=== PATIENT | female | born 1955 | race Caucasian/White ===

== ENCOUNTER 2019-07-09 08:46 | Outpatient (CLI) | payer OTHER, SELFPAY ==
[2019-07-09 08:58] LABS: Basophils Absolute Auto 0.03 K/mm3 (0.00-0.10); Basophils Percent Auto 0.4 % (0.0-1.0); Eosinophils Absolute Auto 0.15 K/mm3 (0.02-0.50); Eosinophils Percent Auto 1.8 % (1.0-6.0); Hematocrit 43.9 % (35.0-49.0); Hemoglobin 14.8 g/dL (12.0-15.0); Immature Granulocyte Absolute 0.01 K/mm3 (0.00-0.00); Immature Granulocyte Percent A 0.1 % (0.0-0.0); Lymphocytes Absolute Auto 2.71 K/mm3 (1.10-4.50); Lymphocytes Percent Auto 31.8 % (18.0-42.0); Mean Corpuscular HGB Conc 33.7 g/dL (32.0-36.0); Mean Corpuscular Hemoglobin 29.9 pg (27.0-31.0); Mean Corpuscular Volume 88.7 fL (78.0-102.0); Mean Platelet Volume 9.3 fl (9.2-11.8); Monocytes Absolute Auto 0.55 K/mm3 (0.10-0.90); Monocytes Percent Auto 6.5 % (2.0-11.0); Neutrophils Absolute Auto 5.1 K/mm3 (1.7-7.2); Neutrophils Percent Auto 59.4 % (50.0-70.0); Platelet Count Result 304 K/mm3 (150-420); Red Blood Count 4.95 M/mm3 (4.20-5.40); Red Cell Distribution Width 12.4 % (11.6-14.4); White Blood Count 8.5 K/mm3 (4.8-10.8)
[2019-07-09 09:07] LABS: Creatinine Urine 156.09 mg/dL (40-278); MALB Creatinine Ratio 5.1 mg/g (0-30)
[2019-07-09 09:09] LABS: Hemoglobin A1C 7.7 % (<5.7)
[2019-07-09 09:43] LABS: Alanine Aminotransferase 45 U/L (14-59); Albumin Level 4.2 g/dL (3.4-5.0); Alkaline Phosphatase 129 U/L (46-116); Anion Gap 13.2 mmol/L (7-16); Aspartate Amino Transferase 23 U/L (15-37); Bilirubin,Total 0.4 mg/dL (0.00-1.00); Blood Urea Nitrogen 17 mg/dL (7-18); Calcium 9.6 mg/dL (8.5-10.1); Carbon Dioxide 34 mmol/L (21-32); Chloride 102 mmol/L (98-108); Cholesterol 176 mg/dL (0-200); Estimated Glomerular Filt Rate > 60; Glucose 139 mg/dL (70-99); HDL Direct 52 mg/dL (40-60); LDL Cholesterol Calculated 79 mg/dL (<130); Osmolality Calculated 303 mOsm/kg (285-295); Potassium 4.2 mmol/L (3.5-5.1); Sodium 145 mmol/L (136-145); Total Protein 7.3 g/dL (6.4-8.2); Triglycerides 226 mg/dL (0-150)
== END 2019-07-09 08:47 | disposition home or self-care (01) ==
LOC: CHSLAB 08:49
PROVIDERS: PCP Internal Medicine; Visit Provider Internal Medicine
DX: E78.5 Hyperlipidemia, unspecified (principal); E11.9 Type 2 diabetes mellitus without complications
CPT/HCPCS: 36415; 80053; 80061; 82043; 83036; 85025

== ENCOUNTER 2020-02-05 09:56 | Outpatient (CLI) | payer OTHER, SELFPAY ==
[2020-02-05 10:17] LABS: Hemoglobin A1C 8.4 % (<5.7)
[2020-02-05 10:50] LABS: Alanine Aminotransferase 31 U/L (14-59); Alkaline Phosphatase 130 U/L (46-116); Anion Gap 10 mmol/L (8-16); Aspartate Amino Transferase 22 U/L (15-37); Bilirubin,Total 0.5 mg/dL (0.00-1.00); Blood Urea Nitrogen 18 mg/dL (7-18); Calcium 9.3 mg/dL (8.5-10.1); Carbon Dioxide 31 mmol/L (21-32); Chloride 102 mmol/L (98-108); Estimated Glomerular Filt Rate > 60; Glucose 177 mg/dL (70-99); Osmolality Calculated 301 mOsm/kg (285-295); Potassium 4.3 mmol/L (3.5-5.1); Sodium 143 mmol/L (136-145); Total Protein 6.8 g/dL (6.4-8.2)
== END 2020-02-05 09:57 | disposition home or self-care (01) ==
LOC: CHSLAB 09:58
PROVIDERS: PCP Internal Medicine; Visit Provider Internal Medicine
DX: E11.9 Type 2 diabetes mellitus without complications (principal); I10 Essential (primary) hypertension
CPT/HCPCS: 36415; 80053; 83036

== ENCOUNTER 2020-06-06 08:36 | Outpatient (CLI) | payer OTHER, SELFPAY ==
[2020-06-06 09:23] LABS: Hemoglobin A1C 8.6 % (<5.7)
[2020-06-06 09:42] LABS: Alanine Aminotransferase 86 U/L (14-59); Alkaline Phosphatase 162 U/L (46-116); Anion Gap 8 mmol/L (8-16); Aspartate Amino Transferase 39 U/L (15-37); Bilirubin,Total 0.4 mg/dL (0.00-1.00); Blood Urea Nitrogen 12 mg/dL (7-18); Calcium 9.5 mg/dL (8.5-10.1); Carbon Dioxide 32 mmol/L (21-32); Chloride 102 mmol/L (98-108); Cholesterol 173 mg/dL (0-200); Estimated Glomerular Filt Rate > 60; Glucose 192 mg/dL (70-99); HDL Direct 40 mg/dL (40-60); LDL Cholesterol Calculated 84 mg/dL (<130); Osmolality Calculated 298 mOsm/kg (285-295); Potassium 4.5 mmol/L (3.5-5.1); Sodium 142 mmol/L (136-145); Total Protein 7.1 g/dL (6.4-8.2); Triglycerides 245 mg/dL (0-150)
== END 2020-06-06 08:37 | disposition home or self-care (01) ==
LOC: CHSLAB 08:39
PROVIDERS: PCP Internal Medicine; Visit Provider Internal Medicine
DX: E11.9 Type 2 diabetes mellitus without complications (principal); I10 Essential (primary) hypertension
CPT/HCPCS: 36415; 80053; 80061; 83036; 84443

== ENCOUNTER 2020-06-17 08:26 | Outpatient (CLI) | payer OTHER, SELFPAY ==
[2020-06-17 08:36] LABS: Add Urine Microscopic? NO; Appearance Urine Clear (Clear); Bilirubin Urine Negative (Negative); Blood Urine Negative (Negative); Color Urine Yellow (Yellow); Glucose Urine UA Negative (Negative); Ketones Urine Negative (Negative); Leukocyte Esterase Ur Negative LEU/UL (Negative); Nitrate Urine Negative (Negative); Protein Urine Negative (Negative); Urobilinogen Urine 0.2 mg/dL (0.2-1.0)
== END 2020-06-17 08:27 | disposition home or self-care (01) ==
LOC: CHSLAB 08:27
PROVIDERS: PCP Internal Medicine; Visit Provider Internal Medicine
DX: N39.0 Urinary tract infection, site not specified (principal)
CPT/HCPCS: 81003

== ENCOUNTER 2020-09-11 08:42 | Outpatient (CLI) | payer OTHER, SELFPAY ==
[2020-09-11 08:52] LABS: Basophils Absolute Auto 0.04 K/mm3 (0.00-0.10); Basophils Percent Auto 0.5 % (0.0-1.0); Eosinophils Absolute Auto 0.17 K/mm3 (0.02-0.50); Eosinophils Percent Auto 2.3 % (1.0-6.0); Hematocrit 41.9 % (35.0-49.0); Immature Granulocyte Absolute 0.01 K/mm3 (0.00-0.00); Immature Granulocyte Percent A 0.1 % (0.0-0.0); Lymphocytes Absolute Auto 2.73 K/mm3 (1.10-4.50); Lymphocytes Percent Auto 36.3 % (18.0-42.0); Mean Corpuscular HGB Conc 33.4 g/dL (32.0-36.0); Mean Corpuscular Hemoglobin 29.3 pg (27.0-31.0); Mean Corpuscular Volume 87.7 fL (78.0-102.0); Mean Platelet Volume 8.7 fl (9.2-11.8); Monocytes Absolute Auto 0.45 K/mm3 (0.10-0.90); Neutrophils Absolute Auto 4.1 K/mm3 (1.7-7.2); Neutrophils Percent Auto 54.8 % (50.0-70.0); Platelet Count Result 298 K/mm3 (150-420); Red Blood Count 4.78 M/mm3 (4.20-5.40); Red Cell Distribution Width 12.9 % (11.6-14.4); White Blood Count 7.5 K/mm3 (4.8-10.8)
[2020-09-11 09:02] LABS: Hemoglobin A1C 6.8 % (<5.7)
[2020-09-11 10:18] LABS: Alanine Aminotransferase 38 U/L (14-59); Alkaline Phosphatase 111 U/L (46-116); Anion Gap 6 mmol/L (8-16); Aspartate Amino Transferase 27 U/L (15-37); Bilirubin,Total 0.5 mg/dL (0.00-1.00); Blood Urea Nitrogen 18 mg/dL (7-18); Calcium 9.2 mg/dL (8.5-10.1); Carbon Dioxide 33 mmol/L (21-32); Chloride 98 mmol/L (98-108); Estimated Glomerular Filt Rate > 60; Glucose 118 mg/dL (70-99); Osmolality Calculated 286 mOsm/kg (285-295); Potassium 3.9 mmol/L (3.5-5.1); Sodium 137 mmol/L (136-145); Total Protein 7.1 g/dL (6.4-8.2)
== END 2020-09-11 08:43 | disposition home or self-care (01) ==
LOC: CHSLAB 08:44
PROVIDERS: PCP Internal Medicine; Visit Provider Internal Medicine
DX: E11.9 Type 2 diabetes mellitus without complications (principal)
CPT/HCPCS: 36415; 80053; 83036; 85025

== ENCOUNTER 2020-11-03 10:31 | Outpatient (CLI) | payer OTHER, SELFPAY ==
--- NOTE | ~2020-11-03 | MM_ITS ---
EXAMINATION: MM screening [facility] BI [facility] HISTORY: Screening TECHNIQUE: Craniocaudal and mediolateral oblique 3-D tomosynthesis images were obtained and synthetic 2-D images were generated. CAD analysis was submitted and interpreted. COMPARISON: Comparison to multiple prior studies sequentially, with oldest reviewed study dated 05/2011. BREAST PARENCHYMAL COMPOSITION: There are scattered areas of fibroglandular density. FINDINGS: There is no evidence of suspicious mass, calcification, or architectural distortion to sugg est malignancy in either breast. There has been no suspicious interval change. IMPRESSION: 1. No mammographic evidence of malignancy. 2. Recommend routine screening mammography in one year. BI-RADS Category 1: Negative Reviewed, dictated and finalized at location A.
== END 2020-11-03 10:32 | disposition home or self-care (01) ==
LOC: CHSIMG 10:32
PROVIDERS: PCP Internal Medicine; Visit Provider Internal Medicine
DX: Z12.31 Encounter for screening mammogram for malignant neoplasm of breast (principal)
CPT/HCPCS: 77063; 77067

== ENCOUNTER 2020-11-11 10:41 | Outpatient (CLI) | payer OTHER, SELFPAY ==
--- NOTE | ~2020-11-11 | XR_ITS ---
EXAMINATION: XR foot LT min 3V DATE: 11/11/2020 11:04 INDICATION: Left foot pain TECHNIQUE: Dorsoplantar, lateral, and 2 oblique views of the left foot were obtained. COMPARISON: 02/12/2016 FINDINGS: Mild cortical irregularity is noted at the medial base of the first proximal phalanx. There is moderate osteoarthritis at the first metatarsophalangeal joint. Mild osteoarthritis is noted in m ultiple interphalangeal joints as well as in the midfoot. The soft tissues are unremarkable. IMPRESSION: 1. Mild cortical irregularity at the medial base of the first proximal phalanx which could reflect no ndisplaced fracture. Recommend clinical correlation for tenderness at this site. Reviewed, dictated and finalized at location A. IMPRESSION: 1. Mild cortical irregularity at the medial base of the first proximal phalanx which could reflect nondisplaced fracture. Recommend clinical correlation for t enderness at this site.
[2020-11-11 11:01] LABS: Basophils Absolute Auto 0.03 K/mm3 (0.00-0.10); Basophils Percent Auto 0.4 % (0.0-1.0); Eosinophils Absolute Auto 0.08 K/mm3 (0.02-0.50); Eosinophils Percent Auto 1.1 % (1.0-6.0); Hematocrit 42.4 % (35.0-49.0); Immature Granulocyte Absolute 0.01 K/mm3 (0.00-0.00); Immature Granulocyte Percent A 0.1 % (0.0-0.0); Lymphocytes Absolute Auto 2.12 K/mm3 (1.10-4.50); Lymphocytes Percent Auto 28.8 % (18.0-42.0); Mean Corpuscular Hemoglobin 29.2 pg (27.0-31.0); Mean Corpuscular Volume 88.3 fL (78.0-102.0); Mean Platelet Volume 9.2 fl (9.2-11.8); Monocytes Absolute Auto 0.51 K/mm3 (0.10-0.90); Monocytes Percent Auto 6.9 % (2.0-11.0); Neutrophils Absolute Auto 4.6 K/mm3 (1.7-7.2); Neutrophils Percent Auto 62.7 % (50.0-70.0); Platelet Count Result 335 K/mm3 (150-420); White Blood Count 7.4 K/mm3 (4.8-10.8)
[2020-11-11 11:19] LABS: Prothrombin Time 11.1 Seconds (9.50-12.10)
[2020-11-11 11:20] LABS: Alanine Aminotransferase 42 U/L (14-59); Albumin Level 4.1 g/dL (3.4-5.0); Alkaline Phosphatase 107 U/L (46-116); Anion Gap 10 mmol/L (8-16); Aspartate Amino Transferase 25 U/L (15-37); Bilirubin,Total 0.4 mg/dL (0.00-1.00); Blood Urea Nitrogen 16 mg/dL (7-18); Calcium 9.5 mg/dL (8.5-10.1); Carbon Dioxide 31 mmol/L (21-32); Chloride 104 mmol/L (98-108); Estimated Glomerular Filt Rate > 60; Glucose 111 mg/dL (70-99); Osmolality Calculated 302 mOsm/kg (285-295); Potassium 4.3 mmol/L (3.5-5.1); Sodium 145 mmol/L (136-145); Total Protein 7.1 g/dL (6.4-8.2)
[2020-11-11 13:55] LABS: Ethanol < 3 mg/dL (0-6)
== END 2020-11-11 10:42 | disposition home or self-care (01) ==
PROVIDERS: PCP Internal Medicine; Visit Provider Nurse Practitioner Family
DX: R23.3 Spontaneous ecchymoses (principal); R41.82 Altered mental status, unspecified; M79.672 Pain in left foot
CPT/HCPCS: 36415; 73630; 80053; 80307; 85025; 85610; 85730

== ENCOUNTER 2020-11-19 09:11 | Outpatient (CLI) | payer OTHER, SELFPAY ==
--- NOTE | ~2020-11-19 | MR_ITS ---
EXAMINATION: MR foot LT wo con DATE: 11/19/2020 10:43 INDICATION: Left foot pain and bruising at the medial plantar aspect of the left midfoot TECHNIQUE: Magnetic resonance imaging (MRI) of the left foot was performed without intravenous contra st. W extends from the heel through the level of the head of the first metatarsal excluding portions of the toes. A marker was placed indicating the region of maximal pain. Sequences included sagittal T 1-weighted FSE, sagittal fluid sensitive FSE STIR, coronal PD-weighted FS FSE, coronal T1-weighted FS E, coronal T2-weighted FS FSE, axial PD-weighted FS FSE, and axial PD-weighted FSE. COMPARISON: Left foot radiographs dated 11/11/2020 FINDINGS: Bone alignment is normal. Hallux valgus seen on the prior radiographs is not included within the fiel d-of-view of the MR imaging. Moderate severity polyarticular osteoarthritis with subarticular cystic changes at the posterior aspect of the tibiotalar, navicular cuneiform, first-fourth tarsal metatarsa l and first metatarsophalangeal joints. No fracture, osteonecrosis or pathologic marrow replacing pro cess. There is also normal well-defined striated pattern of the deep deltoid ligament and thickening of the anterior superficial deltoid ligament and superomedial component of the spring ligament comple x without surrounding edema consistent with scarring related to chronic sprains. The ligaments at the lateral side of the ankle appear to remain normal. Visualized flexor and extensor tendons of the kojo t and ankle are normal. The plantar aponeurosis is normal. No asymmetric atrophy or abnormal signal o f the intrinsic musculature of the foot. Physiologic amount fluid in the joint spaces. No tenosynovit is, bursitis or other abnormal fluid collections. IMPRESSION: 1. 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 2. Chronic scarring related to chronic sprains of the deep and superficial deltoid ligament and super omedial component of the spring ligament complex. Reviewed, dictated and finalized at location A. IMPRESSION: 1. 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 2. Chronic scarring related to chronic sprains of the deep and superficial delt oid ligament and superomedial component of the spring ligament complex.
== END 2020-11-19 09:12 | disposition home or self-care (01) ==
LOC: CHSIMG 09:15
PROVIDERS: PCP Internal Medicine; Visit Provider Internal Medicine
DX: M79.672 Pain in left foot (principal)
CPT/HCPCS: 73718

== ENCOUNTER 2021-01-15 07:56 | Outpatient (CLI) | payer MEDICARE, SELFPAY ==
[2021-01-15 08:22] LABS: Creatinine Urine 107.05 mg/dL (40-278); MALB Creatinine Ratio 12.1 mg/g (0-30); Microalbumin Urine Random < 13.0 mg/L
[2021-01-15 08:25] LABS: Hemoglobin A1C 6.6 % (<5.7)
[2021-01-15 08:58] LABS: Alanine Aminotransferase 39 U/L (14-59); Albumin Level 3.9 g/dL (3.4-5.0); Alkaline Phosphatase 111 U/L (46-116); Anion Gap 8 mmol/L (8-16); Aspartate Amino Transferase 21 U/L (15-37); Bilirubin,Total 0.3 mg/dL (0.00-1.00); Blood Urea Nitrogen 18 mg/dL (7-18); Calcium 9.2 mg/dL (8.5-10.1); Carbon Dioxide 34 mmol/L (21-32); Chloride 104 mmol/L (98-108); Cholesterol 183 mg/dL (0-200); Estimated Glomerular Filt Rate > 60; Glucose 114 mg/dL (70-99); HDL Direct 46 mg/dL (40-60); LDL Cholesterol Calculated 95 mg/dL (<130); Osmolality Calculated 304 mOsm/kg (285-295); Potassium 4.5 mmol/L (3.5-5.1); Sodium 146 mmol/L (136-145); Total Protein 6.9 g/dL (6.4-8.2); Triglycerides 208 mg/dL (0-150)
== END 2021-01-15 07:57 | disposition home or self-care (01) ==
PROVIDERS: PCP Internal Medicine; Visit Provider Internal Medicine
DX: E11.9 Type 2 diabetes mellitus without complications (principal)
CPT/HCPCS: 36415; 80053; 80061; 82043; 83036

== ENCOUNTER 2021-11-05 08:32 | Outpatient (CLI) | payer MEDICARE, SELFPAY ==
--- NOTE | ~2021-11-05 | MM_ITS ---
EXAMINATION: MM screening [facility] HISTORY: Screening TECHNIQUE: Craniocaudal and mediolateral oblique 3-D tomosynthesis images were obtained and synthetic 2-D images were generated. CAD analysis was submitted and interpreted. COMPARISON: Comparison to multiple prior studies sequentially, with oldest reviewed study dated 10/30. BREAST PARENCHYMAL COMPOSITION: There are scattered areas of fibroglandular density. FINDINGS: There is no evidence of suspicious mass, calcification, or architectural distortion to sugg est malignancy in either breast. There has been no suspicious interval change. IMPRESSION: 1. No mammographic evidence of malignancy. 2. Recommend routine screening mammography in one year. BI-RADS Category 1: Negative Reviewed, dictated and finalized at location L.
== END 2021-11-05 08:33 | disposition home or self-care (01) ==
LOC: CHSIMG 08:33
PROVIDERS: PCP Internal Medicine; Visit Provider Internal Medicine
DX: Z12.31 Encounter for screening mammogram for malignant neoplasm of breast (principal)
CPT/HCPCS: 77063; 77067

== ENCOUNTER 2022-11-08 11:36 | Outpatient (CLI) | payer OTHER, SELFPAY ==
--- NOTE | ~2022-11-08 | MM_ITS ---
EXAMINATION: MM screening [facility] BI [facility] HISTORY: Screening mammogram TECHNIQUE: Craniocaudal and mediolateral oblique 3-D tomosynthesis images were obtained and synthetic 2-D images were generated. CAD analysis was submitted and interpreted. COMPARISON: 11/05/2021, 11/03/2020, 10/30/2012 BREAST PARENCHYMAL COMPOSITION: There are scattered areas of fibroglandular density. FINDINGS: No suspicious mass, calcification, or architectural distortion are identified in either shreyas ast to suggest malignancy. There has been no suspicious interval change. IMPRESSION: 1. No mammographic evidence of malignancy. 2. Recommend routine screening mammography in one year. BI-RADS Category 1: Negative Reviewed, dictated and finalized at location A.
== END 2022-11-08 11:37 | disposition home or self-care (01) ==
LOC: CHSIMG 11:38
PROVIDERS: PCP Internal Medicine; Visit Provider Internal Medicine
DX: Z12.31 Encounter for screening mammogram for malignant neoplasm of breast (principal)
CPT/HCPCS: 77063; 77067

== ENCOUNTER 2023-06-15 08:48 | Outpatient (CLI) | payer OTHER, SELFPAY ==
--- NOTE | ~2023-06-15 | CT_ITS ---
CT Scan of the Chest without Contrast: Clinical Indication: Lung cancer screening, personal history of nicotine dependence Technique: Contiguous sections were acquired throughout the chest without intravenous contrast. Dose reduction technique was used on this scan by utilizing automated exposure control and iterative recon struction technique. The dose-length product (DLP) was 118.16 mGy-cm. Findings: There is no evidence of any significant mediastinal, hilar or axillary lymphadenopathy. The mediastin al soft tissues appear normal. There is no evidence of pleural or pericardial effusion. The lungs are clear. No pulmonary nodules or infiltrates are noted. Images through the upper abdomen reveal no abnormalities. Impression: Lung RADS 1: Negative. 12 month follow-up screening CT advised. Reviewed, dictated and finalized at location . OR [employer] OFFICER Impression: Lung RADS 1: Negative. 12 month follow-up screening CT advised.
== END 2023-06-15 08:49 | disposition home or self-care (01) ==
LOC: CHSIMG 08:49
PROVIDERS: PCP Internal Medicine; Visit Provider Internal Medicine
DX: Z12.2 Encounter for screening for malignant neoplasm of respiratory organs (principal); Z87.891 Personal history of nicotine dependence
CPT/HCPCS: 71271

== ENCOUNTER 2023-06-20 06:48 | Day surgery (SDC) | payer OTHER, SELFPAY ==
[2023-05-30 11:50] VITALS: BMI 31.4
[2023-06-20 07:10] VITALS: BP 134/86; PULSE 80; RESP 20; TEMP 36.9; O2SAT 97
[2023-06-20 07:33] LABS: Glucose Point of Care 148 mg/dl (65-105)
[2023-06-20] MEDS: LACTATED RINGERS 1,000 ML 150 ML IV CONT (07:42)
--- NOTE | 2023-06-20 08:22 | P.PNAN_ITS ---
Anes - Initial Pre Proc Eval Procedure: Operation Date: 06/20/23 08:45 Proposed Procedures p Screening Colonoscopy - Yohan Lane DO Date/Time: 06/20/23 08:22 Surgeon: Yohan Lane DO Pre Op Diagnosis: Neoplasm Screening Patient Data Age: 68 Gender: F Height: 1.6 m Weight: 79.5 kg Last Vital Signs Temp 36.9 C 06/20/23 07:10 Pulse 80 06/20/23 07:10 Resp 20 06/20/23 07:10 BP 134/86 06/20/23 07:10 Pulse Ox 97 06/20/23 07:10 O2 Del Method Room Air 06/20/23 07:10 Allergies Allergy/AdvReac Type Severity Reaction Status Date / Time No Known Allergies Allergy Verified 06/20/23 07:35 Home Medications Medication Instructions Recorded Confirmed Type Fish Oil 1 tab-cap PO DIRECTED 06/03/23 06/20/23 History Vitamin D3 1 tab-cap PO DIRECTED 06/03/23 06/20/23 History allopurinol 100 mg tablet 100 mg PO DAILY 06/03/23 06/20/23 History glimepiride 1 mg tablet 1 mg PO BID 06/03/23 06/20/23 History ipratropium bromide 42 mcg (0.06 2 spray intranasal BID 06/03/23 06/20/23 History %) nasal spray irbesartan 75 mg tablet 75 mg PO HS 06/03/23 06/20/23 History loratadine 10 mg tablet 10 mg PO DAILY 06/03/23 06/20/23 History metformin 500 mg tablet,extended 1,000 mg PO BID 06/03/23 06/20/23 History release 24 hr omeprazole 40 mg capsule,delayed 40 mg PO DAILY 06/03/23 06/20/23 History release oxybutynin chloride 5 mg 5 mg PO DAILY 06/03/23 06/20/23 History tablet,extended release 24 hr simvastatin 40 mg tablet 40 mg PO DAILY 06/03/23 06/20/23 History vitamin E 1 tab-cap PO DIRECTED 06/03/23 06/20/23 History Laboratory Tests 06/20/23 07:28 POC Capillary Glucose 148 H mg/dl (65-105) Patient hx anesthesia problems: none Family hx anesthesia problems: none Results Review: All pre-operative results and documents have been reviewed as part of the pre- operative evaluation. [facility] Past Medical History Medical History (Updated 06/20/23 @ 08:22 by Jez Shipman MD) Diabetes HTN (hypertension) Hyperlipidemia Social History Social History Smoking status: Former smoker Smoking end date: 04/18/09 Alcohol intake: current Substance use type: does not use Anes - Eval Final PreProcedure Day of Procedure 06/20/23 08:22 Patient weight: obese Heart: regular rate and rhythm Lungs: clear to auscultation Airway: Mallampati scale class II Neurological: alert and oriented Last oral intake: >/= 8 hours ASA classification: III Anesthetic plan: proceed Anesthesia type and monitoring: general GIVS and standard monitoring Results Review: All pre-operative results and documents have been reviewed as part of the pre- operative evaluation. Informed Consent: The patient's anesthetic plan and its attendant risks and benefits were discussed with the patient/family/POA. Questions were solicited and answers provided to the satisfaction of the patient/family/POA.
--- NOTE | 2023-06-20 08:57 | PM.IMHP ---
H&P: HPI History of Present Illness Date/Time: 06/20/23 08:57 Chief Complaint: History of colon polyps Narrative: this is a 68-year-old woman who presents for colonoscopy. Her last colonoscopy was over 5 years ago and a polyp was removed at that time. She denies any hematochezia or melena. She denies any family history of colon cancer or change in bowel habits. Review of Systems Review of Systems: All systems reviewed & are unremarkable except as noted in HPI and below Constitutional: Constitutional: Denies chills, Denies fever(s), Denies headache(s) and Denies weight loss Eyes: Eyes: Denies change in vision ENT: Denies dizziness, Denies headache(s), Denies neck mass and Denies throat swelling Cardiovascular: Cardiovascular: Denies chest pain, Denies lightheadedness and Denies dyspnea Respiratory: Respiratory: Denies cough, Denies dyspnea and Denies wheezing Gastrointestinal: Gastrointestinal: Denies abdominal pain, Denies change in bowel habits, Denies nausea and Denies vomiting Genitourinary: Genitourinary: Denies hematuria and Denies dysuria Musculoskeletal: Musculoskeletal: Reports as per HPI Integumentary/Breasts: Skin/Breast: Reports as per HPI Neurologic: Denies dizziness and Denies headache(s) Allergic/Immunologic: Allergic/Immunologic: Denies throat swelling and Denies wheezing [facility] Past Medical History Medical History (Updated 06/20/23 @ 08:[address] DO) Diabetes HTN (hypertension) Hyperlipidemia Social History Social History Smoking status: Former smoker Smoking end date: 04/18/09 Alcohol intake: current Substance use type: does not use Meds Home Medications and Allergies Home Medications Medication Instructions Recorded Confirmed Type Fish Oil 1 tab-cap PO DIRECTED 06/03/23 06/20/23 History Vitamin D3 1 tab-cap PO DIRECTED 06/03/23 06/20/23 History allopurinol 100 mg tablet 100 mg PO DAILY 06/03/23 06/20/23 History glimepiride 1 mg tablet 1 mg PO BID 06/03/23 06/20/23 History ipratropium bromide 42 mcg (0.06 2 spray intranasal BID 02/16/24 03/04/24 History %) nasal spray irbesartan 75 mg tablet 75 mg PO HS 06/03/23 06/20/23 History loratadine 10 mg tablet 10 mg PO DAILY 06/03/23 06/20/23 History metformin 500 mg tablet,extended 1,000 mg PO BID 06/03/23 06/20/23 History release 24 hr omeprazole 40 mg capsule,delayed 40 mg PO DAILY 06/03/23 06/20/23 History release oxybutynin chloride 5 mg 5 mg PO DAILY 06/03/23 06/20/23 History tablet,extended release 24 hr simvastatin 40 mg tablet 40 mg PO DAILY 06/03/23 06/20/23 History vitamin E 1 tab-cap PO DIRECTED 06/03/23 06/20/23 History Allergies Allergy/AdvReac Type Severity Reaction Status Date / Time No Known Allergies Allergy Verified 06/20/23 07:35 Vital Signs Vital Signs - 24 hr 06/20/23 07:10 Temperature 36.9 C Pulse Rate 80 Respiratory Rate 20 Blood Pressure 134/86 Pulse Oximetry 97 Oxygen Delivery Room Air Exam Const: General: no acute distress and alert Orientation/consciousness: patient oriented x3 HENMT: Head: normocephalic and atraumatic Ears: hearing grossly normal bilaterally Face/Nose/Sinus: Normal nares present Mouth: Yes Normal oral and palatal mucosa present Eyes: Periorbital: periorbital findings normal Sclera: sclerae normal EOM: EOMs intact bilaterally Neck: Neck: normal visual inspection, no lymphadenopathy and trachea midline Chest: Chest palpation & inspection: normal inspection of the chest Resp: Effort & Inspection: normal respiratory effort Auscultation: clear to auscultation bilaterally Cardio: Jugular venous distension: no JVD Rate: regular rate Rhythm: regular rhythm Heart sounds: S1 normal heart sound present and S2 normal heart sound present Peripheral pulses: Peripheral pulses 2+ throughout GI: Inspection: normal to inspection GI Palp: Yes Soft to palpation, No
--- NOTE | 2023-06-20 08:58 | WPDHPUPDATE1 ---
History and Physical Update Update Date/Time: 06/20/23 08:58 History and Physical has been reviewed, including an updated exam of the patient. There are NO changes in the patient's condition. Risks, benefits, and alternatives have been discussed and questions answered. Patient agrees to proceed with procedure.
[2023-06-20 09:39] VITALS: BP 102/66; PULSE 66; RESP 16; O2SAT 97
[2023-06-20 09:49] VITALS: BP 104/60; PULSE 69; RESP 20; O2SAT 98
--- NOTE | 2023-06-20 09:57 | WPDANESPN ---
Anes - Prog Note Post-Op Date/Time: 06/20/23 09:57 Cardiovascular status: normal Respiratory status: normal Airway patency: baseline Mental status: baseline Post-Op hydration status: normal Vital Signs: Last Vital Signs Temp 36.9 C 06/20/23 07:10 Pulse 69 06/20/23 09:49 Resp 20 06/20/23 09:49 BP 104/60 06/20/23 09:49 Pulse Ox 98 06/20/23 09:49 O2 Del Method Room Air 06/20/23 09:49 Pain Score (VAS): 0/10 I/O: Intake & Output 06/19/23 06/20/23 06/20/23 23:59 07:59 15:59 Intake Total 1000 Balance 1000 06/20/23 07:28 POC Capillary Glucose 148 H Patient Feedback: Patient satisfied with anesthetic care.
[2023-06-20 09:59] VITALS: BP 120/60; PULSE 76; RESP 20; O2SAT 99
== END 2023-06-20 10:10 | disposition home or self-care (01) ==
PROVIDERS: PCP Internal Medicine; Visit Provider Surgery
PROC: 0DJD8ZZ Inspection of Lower Intestinal Tract, Via Natural or Artificial Opening Endoscopic (ICD-10-PCS; CPT 45378; principal; 2023-06-20 08:45)
DX: Z86.010 Personal history of colon polyps (principal)
CPT/HCPCS: 45378

== ENCOUNTER 2024-02-20 09:55 | Outpatient (RCR) | payer OTHER, SELFPAY ==
--- NOTE | 2024-02-20 11:33 | PTOPEVAL1 ---
Assessment and note entered by Farncisco Javier Horton Evaluation Information Assessment Status Evaluation Diagnosis impaired balance, R26.89 ICD-10 Condition Codes (PT) Dizziness & Giddiness R42 Onset 02/19/23 Subjective Information Pt. reports that she has been dizzy for about 1 year. She reports that she recently went through therapy regarding her balance recently. She reports that while participating in therapy, she was sedentary between sessions, and spends a lot of her time sleeping. She states that she has a little numbness in both of her feet that his constant. She reports that she has started no new medications. She states that she has no history of depression. She is diabetic but states that she does not ever check her glucose levels. She reports that she continues to drive locally, despite her dizziness. She states that she does eat 2 meals a day, which is usually breakfast and dinner. She states that she sleeps sporadically throughout the day. She states that her goal remains to get rid of her dizziness. Reported Pain Level Pain Score 0: Self Report Assessment PT Clinical Summary Pt. is a 69 year old female who enters the clinic regarding dizziness and impaired balance. She presents with mild indication of vestibular disorder and moderate fall risk. She has hx of diabetes that she does not monitor that is also concerning. Contacted the referring practitioner to discuss differential diagnosis. At this time continued skilled PT is indicated to address balance and vestibular/oculomotor condition to help reduce fall risk. Plan of Care Interventions Gait Training,Neuro Re-education,Patient/Caregiver Educati,Therapeutic Activities,Therapeutic Exercise PT Services Indicated Yes Treatment Frequency and 1x/week x 6 visits Duration These treatments will address the objective and functional deficits as defined above. The patient will be advanced safely and appropriately in order for the patient to progress towards his/her prior level of function. Additional exercises will be introduced and as well as a comprehensive home exercise program upon discharge, if needed, ?to ensure carryover of functional gains achieved in the clinic. This treatment plan has been reviewed and agreement upon by the patient.
--- NOTE | 2024-02-20 11:34 | OPREHPOC ---
Outpatient Therapy Plan of Care This is a Multidisciplinary Plan of Care that may contain components documented by all disciplines (PT, OT, and ST.) PT Problem 1 PT Problem #1 Knowledge Deficit PT Goal 1 Goal / Goal Update Independent with a HEP addressing visual tracking and vestibular condition. Target Visit 2 PT Problem 2 PT Problem #2 Impaired Vestibular Syste PT Goal 1 Goal / Goal Update Pt. will deny dizziness with visual tracking activities and balance activities. Target Visit 6 PT Problem 3 PT Problem #3 Impaired Balance PT Goal 1 Goal / Goal Update Pt. will score 25 or greater on the Tinetti. Target Visit 6
--- NOTE | 2024-03-26 11:37 | PTOPDC ---
Assessment and note entered by [facility] Evaluation Information Assessment Status Discharge Diagnosis impaired balance, R26.89 ICD-10 Condition Codes (PT) Dizziness & Giddiness R42 Onset 02/19/23 Subjective Information Pt. reports that while she still has dizziness she is doing better. She reports that she is walking in her home without her cane. She states that she is not currently dizzy and dizziness remains on/off. Reported Pain Level Pain Score 0: Self Report Assessment PT Clinical Summary Despite continued c/o dizziness, pt. demonstrates improved Tinetti score and improved safety with ambulation. Her stride length is improved without cuing and appears to deviate laterally less over short distance. She will be discharged from our care and follow up with the neurologist regarding her continued dizziness. Plan of Care PT Services Indicated No
== END 2024-03-26 11:39 | disposition home or self-care (01) ==
LOC: CHSPT 09:55
PROVIDERS: Visit Provider Nurse Practitioner Family
DX: R26.89 Other abnormalities of gait and mobility (principal); R42 Dizziness and giddiness
CPT/HCPCS: 97110; 97112; 97116; 97162; 97530

== ENCOUNTER 2024-02-24 09:23 | Outpatient (CLI) | payer OTHER, SELFPAY ==
--- NOTE | ~2024-02-24 | US_ITS ---
EXAMINATION: US carotid duplex BI DATE: 02/24/2024 09:44 INDICATION: Dizziness TECHNIQUE: Grayscale, color Doppler, and pulsed Doppler images of the cervical carotid arteries were obtained. The degree of vessel stenosis is placed in one of the following categories: normal, <50%, 5 0-69%, >=70% but less than near-occlusion, near-occlusion, or total occlusion. Note that percent sten osis relative to normal distal artery lumen diameter is indirectly measured from velocity measurement s as described by Igor, et al. Radiology 2003; [id number]. Notes: Normal: Peak systolic velocity <125 centimeters/sec and no plaque <50%. Peak systolic velocity <125 ( EDV <40; ICA/CCA PSV ratio <2.0; used these factors only a tandem lesions or low cardiac output or co ntralateral disease) 50-69 %: PSV 125-230 (EDV 40-100; ratio 2-4) >= 70% but less than near occlusion: PSV greater than 230 (EDV > 100; ratio> 4.0) Near Occlusion: PSV that is variable; markedly narrowed lumen Occlusion: Absent flow on color/spectral Doppler and no lumen on gómez scale. COMPARISON: None. FINDINGS: RIGHT: The right common carotid artery (CCA) peak systolic velocity (PSV) is 101 cm/s. The right internal ca rotid artery (ICA) PSV is 110 cm/s. The right ICA end-diastolic velocity (EDV) is 27 cm/s. The right ICA/CCA PSV ratio is 1.1. The external carotid artery (ECA) PSV is 71 cm/s. There is antegrade flow i n the right vertebral artery. LEFT: The left CCA PSV is 110 cm/s. The left ICA PSV is 69 cm/s. The left ICA EDV is 18 cm/s. The left ICA/ CCA PSV ratio is 0.6. The ECA PSV is 82 cm/s. There is antegrade flow in the left vertebral artery. IMPRESSION: 1. Less than 50% stenosis in the right internal carotid artery by sonographic criteria. 2. Less than 50% stenosis in the left internal carotid artery by sonographic criteria. Reviewed, dictated and finalized at location B. ICAL MANAGER IMPRESSION: 1. Less than 50% stenosis in the right internal carotid artery by sonographic erica garvin. 2. Less than 50% stenosis in the left internal carotid artery by sonographic alysha claros.
== END 2024-02-24 09:24 | disposition home or self-care (01) ==
LOC: CHSIMG 09:24
PROVIDERS: PCP Internal Medicine; Visit Provider Internal Medicine
DX: R42 Dizziness and giddiness (principal); I65.23 Occlusion and stenosis of bilateral carotid arteries
CPT/HCPCS: 93880

== ENCOUNTER 2024-03-10 10:31 | Outpatient (CLI) | payer OTHER, SELFPAY ==
--- NOTE | ~2024-03-10 | MR_ITS ---
EXAMINATION: MR brain/brain stem wo con DATE: 03/10/2024 11:41 INDICATION: 5 months of unsteady gait TECHNIQUE: Magnetic resonance imaging (MRI) of the brain and brainstem was performed without intraven ous contrast. Sequences included sagittal and axial T1-weighted SE, axial diffusion-weighted FS SE, a xial T2*-weighted GRE, axial T2-weighted FLAIR, and axial T2-weighted FSE. Apparent diffusion coeffic ient (ADC) maps were created. COMPARISON: Head CT dated 02/04/2017 FINDINGS: There are no areas of restricted diffusion to suggest acute infarction. No intracranial hemorrhage or abnormal intracranial mass lesion. There are a few scattered small foci of nonspecific increased T2- weighted signal intensity in the cerebral white matter, predominantly involving the deep and perivent ricular white matter which is well within normal limits for age. There are no intraparenchymal signal abnormalities seen on the other pulse sequences. The ventricles are symmetric and normal in size. Th ere are no abnormal extra-axial fluid collections. Flow voids are seen in the cerebral arteries on th e T2-weighted sequences consistent with their expected patency. Mild mucosal thickening the bilateral ethmoid sinuses. Visualized orbits and soft tissues are unremarkable. Small left mastoid effusion. IMPRESSION: 1. Normal for age brain. No acute intrarenal process. Reviewed, dictated and finalized at location A. FURNITURE CASTER
== END 2024-03-10 10:32 | disposition home or self-care (01) ==
LOC: CHSIMG 10:32
PROVIDERS: PCP Internal Medicine; Visit Provider Nurse Practitioner Family
DX: R42 Dizziness and giddiness (principal); R26.81 Unsteadiness on feet
CPT/HCPCS: 70551

== ENCOUNTER 2024-04-12 11:55 | Outpatient (CLI) | payer OTHER, SELFPAY ==
[2024-04-12 12:23] LABS: Basophils Absolute Auto 0.02 K/mm3 (0.00-0.10); Basophils Percent Auto 0.2 % (0.0-1.0); Eosinophils Absolute Auto 0.05 K/mm3 (0.02-0.50); Eosinophils Percent Auto 0.6 % (1.0-6.0); Hematocrit 42.9 % (35.0-42.0); Hemoglobin 14.9 g/dL (11.7-13.8); Immature Granulocyte Absolute 0.03 K/mm3 (0.00-0.00); Immature Granulocyte Percent A 0.4 % (0.0-0.0); Lymphocytes Absolute Auto 2.03 K/mm3 (1.10-4.50); Lymphocytes Percent Auto 23.8 % (18.0-42.0); Mean Corpuscular HGB Conc 34.7 g/dL (32-36); Mean Corpuscular Hemoglobin 30.2 pg (27.0-31.0); Mean Corpuscular Volume 86.8 fL (78.0-102.0); Monocytes Absolute Auto 0.43 K/mm3 (0.10-0.90); Neutrophils Absolute Auto 5.98 K/mm3 (1.70-7.20); Platelet Count Result 345 K/mm3 (150-420); Red Blood Count 4.94 M/mm3 (4.20-5.40); Red Cell Distribution Width 12.5 % (11.6-14.4); White Blood Count 8.5 K/mm3 (4.8-10.8)
[2024-04-12 12:42] LABS: Add Urine Microscopic? YES; Appearance Urine Clear (Clear); Bilirubin Urine Negative (Negative); Blood Urine Negative (Negative); Color Urine Light Yellow (Yellow); Glucose Urine UA Negative (Negative); Ketones Urine Negative (Negative); Leukocyte Esterase Ur Trace (Negative); Nitrate Urine Negative (Negative); Protein Urine Negative (Negative); Urobilinogen Urine 0.2 mg/dL (0.2-1.0); pH Urine 7.5 (5.0-8.0)
[2024-04-12 12:50] LABS: D Dimer 0.21 mg/L (0.19-0.50)
[2024-04-12 12:55] LABS: Hemoglobin A1C 6.3 % (<5.7)
[2024-04-12 13:04] LABS: Bacteria Urine Rare /hpf; RBC Urine 0-2 /hpf (0-2); Squamous Epithelial Cell Urine Rare /hpf (Few); WBC Urine 0-3 /hpf (0-3)
[2024-04-12 13:33] LABS: Alanine Aminotransferase 27 U/L (14-59); Albumin Level 4.6 g/dL (3.4-5.0); Alkaline Phosphatase 141 U/L (46-116); Anion Gap 12 mmol/L (4-12); Aspartate Amino Transferase 16 U/L (15-37); Bilirubin,Total 0.4 mg/dL (0.00-1.00); Blood Urea Nitrogen 13 mg/dL (7-18); Calcium 10.1 mg/dL (8.5-10.1); Carbon Dioxide 31 mmol/L (21-32); Chloride 101 mmol/L (98-108); Estimated Glomerular Filt Rate > 60; Glucose 102 mg/dL (70-99); NT Pro B Type Natriuretic Pept 24 pg/mL (0-125); Osmolality Calculated 298 mOsm/kg (285-295); Potassium 4.3 mmol/L (3.5-5.1); Sodium 144 mmol/L (136-145); Thyroid Stimulating Hormone 1.08 uIU/mL (0.36-3.74); Total Protein 7.8 g/dL (6.4-8.2)
[2024-04-12 13:41] LABS: CRP < 0.5 mg/dL (0.0-0.9)
== END 2024-04-12 11:56 | disposition home or self-care (01) ==
LOC: CHSLAB 11:58
PROVIDERS: PCP Internal Medicine; Visit Provider Internal Medicine
DX: R06.9 Unspecified abnormalities of breathing (principal); M79.89 Other specified soft tissue disorders; E11.9 Type 2 diabetes mellitus without complications
CPT/HCPCS: 36415; 80053; 81001; 83036; 83880; 84443; 85025; 85380; 86140

== ENCOUNTER 2024-12-10 12:18 | Outpatient (CLI) | payer OTHER, SELFPAY ==
--- NOTE | ~2024-12-10 | XR_ITS ---
EXAMINATION: XR ribs LT 2V w CXR 2V DATE: 12/10/2024 12:44 INDICATION: Left thoracic cage contusion TECHNIQUE: 4 images were obtained COMPARISON: None available FINDINGS: Mildly displaced left lateral eighth, ninth and 10th rib fractures. Heart is mildly enlarged. No pneumothorax. No pleural effusion. No free air the diaphragm. Small opacities in the lower lungs. IMPRESSION: 1. Mildly displaced left lateral eighth, ninth and 10th acute rib fractures. 2. Small opacities in the mid and lower lungs which represents atelectasis/scarring or infiltrates. Reviewed, dictated and finalized at location Q. IMPRESSION: 1. Mildly displaced left lateral eighth, ninth and 10th acute rib fractures. 2. Small opacities in the mid and lower lungs which represents atelectasis/sca rring or infiltrates.
--- OUTSIDE RECORDS SUMMARY | 2024-12-10 12:28 | XMS_ITS | Encounter Summary ---
Author Organization [facility] Address [address] [place] [id number] Care Team Providers Care Layer Off Name Role Phone Quentin Acevedo MD Primary Care Provider [phone] Encounter Details Date Type Department Care Team (Late st Contact Info) Description 09/23/2018 Abstract [facility] CONVERSION [address] [place] [id number] , Generic Conversion, Social History Tobacco Use Types Packs/Day Years Used Date Smoking Tobacco: Never Assessed Comments Unknown Sex and Gender Information Value Date Recorded Sex Assigned at Female 05/24/2024 12:53 PM FARM FACILITY MANAGER Legal Sex Female 11:30 PM FARM FACILITY MANAGER Gender Identity Not on file Sexual Orientation Not on file documented as of this encounter Plan of Treatment Upcoming Encounters Date Type Department Care Team (Late st Contact Info) Description 11/14/2025 1:30 PM CDT Appointment [facility] [address] [place] [address] Quentin Acevedo MD [address] [place] [address] documented as of this encounter Visit Diagnoses Not on filedocumented in this encounter Care Teams Layer Off Relationship Specialty Start Date End Date Quentin Acevedo MD [address] [place] [address] PCP - General INTERNAL MEDICINE 10/20/18 documented as of this encounter
--- OUTSIDE RECORDS SUMMARY | 2024-12-10 12:28 | XMS_ITS | Clinical Summary ---
Author Organization [facility] Address [facility] [place] [address] Care Team Providers Care Airline Pilot Name Role Phone Quentin Acevedo MD Primary Care Provider [phone] Allergies No known active allergies Medications allopurinol (ZYLOPRIM) 100 MG tablet Take 1 tablet (100 mg total) by mouth daily. Active vitamin D3 (CHOLECALCIFERO L) 25 mcg tablet Take by mouth 2 (two) times daily. Active metFORMIN (GLUCOPHAGE) 500 MG tablet Take 1 tablet (500 mg total) by mouth. Active omeprazole (PRILOSEC) 40 MG capsule Take 1 capsule (40 mg total) by mouth daily. Active simvastatin (ZOCOR) 40 MG tablet Take 1 tablet (40 mg total) by mouth nightly. Active oxybutynin (DITROPAN) 5 MG tablet Take 1 tablet (5 mg total) by mouth 3 (three) times daily. taKES EVERY OTHER DAY Active irbesartan (AVAPRO) 75 MG tablet Take 1 tablet (75 mg total) by mouth daily. Active magnesium oxide (MAG-OX) 250 MG tablet Take 1 tablet (250 mg total) by mouth daily. Active potassium chloride CR 15 MEQ Tab CR tablet Active aspirin 81 MG chewable tablet Chew 1 tablet (81 mg total) by mouth daily. Active Active Problems Problem Noted Date Diagnosed Date Balance disorder 12/27/2023 Encounters Date Type Department Care Team Description 11/28/2024 9:05 AM CDT - 11/28/2024 11:59 PM CDT Hospital Encounter [facility] [address] [facility] [address] Krystal Roche, Discharge Disposition: Home or Self Care (Routine Discharge) 11/28/2024 Orders Only [facility] [address] [place] [address] Krystal Roche, 11/28/2024 Travel 11/14/2024 1:20 PM CDT - 11/14/2024 11:59 PM CDT Hospital Encounter [facility] [address] [place] [address] Quentin Acevedo MD Discharge Disposition: Home or Self Care (Routine Discharge) 11/14/2024 Travel from Last 3 Months Family History Medical History Relation Comments Prostate Cancer Brother Relation Status Comments Brother Social History Tobacco Use Types Packs/Day Years Used Date Smoking Tobacco: Never Smokeless Tobacco: Never Tobacco Cessation:Counseling Given: Not Answered Alcohol Use Standard Drinks/Week Comments Yes 0 (1 standard drink = 0.6 oz pur e alcohol) OCCASIONALLY Comments No Sex and Gender Information Value Date Recorded Sex Assigned at Female 05/24/2024 12:53 PM BUSINESS CONTINUITY SPECIALIST Legal Sex Female 11:30 PM BUSINESS CONTINUITY SPECIALIST Gender Identity Not on file Sexual Orientation Not on file Last Filed Vital Signs Vital Sign Reading Time Taken Comments Blood Pressure 170/66 01/05/2023 11:19 PM CDT Pulse 81 01/05/2023 11:19 PM CDT Temperature 36.8 C (98.2 F) 01/05/2023 11:19 PM CDT Respiratory Rate 16 01/05/2023 11:19 PM CDT Oxygen Saturation 99% 01/05/2023 11:19 PM CDT Inhaled Oxygen Concentration - - Weight 80.9 kg (178 lb 6.4 oz) 01/05/2023 11:19 PM CDT Height 162.6 cm (5' 4) 01/05/2023 11:19 PM CDT Body Mass Index 30.62 01/05/2023 11:19 PM CDT Plan of Treatment Upcoming Encounters Date Type Department Care Team (Late st Contact Info) Description 11/14/2025 1:30 PM CDT Appointment [facility] [address] [place] [address] Quentin Acevedo MD [address] [place] [address] Health Maintenance Due Date Last Done Comments Colorectal Cancer Screening Colonoscopy (10 Years) 1955 Hepatitis C 01/10/1974 Annual Medicare Wellness Visit 01/10/2021 Zoster Vaccines (3 of 3) 10/19/2024 08/24/2024, 11/0 05/2015 Mammogram Screening 11/14/2026 11/14/2024, 11/15/2023, 10/29/2019, Additional history exists DTaP, Tdap and Td Vaccines (3 - Td or Tdap) 07/07/2033 07/08/2023, 02/08/2017 Pneumococcal Vaccine: 50+ Years Completed 01/01/2022, 01/10/2021, 02/13/2016 RSV Immunization or 60+ Years Completed 07/08/2023 Dexa Scan (General) Completed 11/15/2023 COVID-19 Vaccine Completed 07/01/2024, , 01/28/2023, Additional history exists Meningococcal B Vaccine Aged Out No l onger eligible based on patient's age to complete this topic Meningococcal Vaccine Aged Out No thang dilip eligible based on patient's age to complete this topic RSV Immunizations Under 20 Months Aged Out No longer eligible based on patient's age to complete this topic Procedures Procedure Name Priority Date/Time Associated Diagnosis Comments PROTEIN ELECTROPHORESIS URINE RANDOM Routine 11/28/2024 9:26 AM CDT Idiopathic peripheral neuropathy SED RATE, ERYTHROCYTE (ESR) Routine 11/28/2024 9:24 AM CDT Idiopathic peripheral neuropathy C-REACTIVE PROTEIN Routine 11/28/2024 9: 24 AM CDT Idiopathic peripheral neuropathy ANTINUCLEAR ANTIBODY WI RFX Routine 11/28/2024 9:24 AM CDT Idiopathic peripheral neuropathy PROTEIN, ELECTROPHORESIS Routine 11/28/2024 9:24 AM CDT Idiopathic peripheral neuropathy IMMUNOFIXATION Routine 11/28/2024 9:24 AM CDT Idiopathic peripheral neuropathy TSH W/REFLEX Routine 11/28/2024 9:24 AM CDT Idiopathic peripheral neuropathy VITAMIN B-12 Routine 11/28/2024 9:24 AM CDT Idiopathic peripheral neuropathy VITAMIN B6 Routine 11/28/2024 9:24 AM CDT Idiopathic peripheral neuropathy MG SCREENING W ALEC KACIE DIGI Routine 11/14/2024 2:09 PM CDT Visit for screening mammogram BONE DENSITY/DEXA Routine 11/15/2023 2:3 8 PM CDT Postmenopausal from Last 3 Months or Most Recently Relevant to Health Maintenance Results * (ABNORMAL) PROTEIN ELECTROPHORESIS URINE RANDOM (11/28/2024 9:26 AM CDT) PROTEIN URINE TOTAL RANDOM 24.2(H) <12.0 MG/DL 11/29/2024 2:53 PM CDT [facility] INTERPRETATION THIS URINE PEP WAS INTERPRETED BY 11/29/2024 8:11 PM CDT [facility] Comment: DR EJ CONLEY THERE IS MILD RANDOM PROTEINURIA WHICH IS MAINLY ALBUMIN AND MUCOPROTEIN. BENCE GALLEGO PROTEIN IS NOT DETECTED. URINE SPECIMEN / Unknown 11/28/2024 9:26 AM CDT us Krystal Roche DO URINE ORDERABLES Terra l Result [facility] [address] [place] [address], [phone] * TSH W/REFLEX (11/28/2024 9:24 AM CDT) TSH 1.240 0.358 - 3.740 uIU/ML 11/28/2024 10:40 AM CDT [facility] Comment: FREE T4 NOT INDICATED ASSAY PERFORMED BY CHEMILUMINESCENT IMMUNOASSAY METHODOLOGY USING SIEMENS DIMENSION REAGENT. PATIENT RESULTS DETERMINED BY ASSAYS FROM DIFFERENT MANUFACTURERS AND/OR BY DIFFERENT METHODS MAY NOT BE COMPARABLE. 11/28/2024 9:24 AM CDT Krystal Roche DO LABORATORY Final Result Performing Organization Address City/[facility]/ZIP Co de Phone Number [facility] [address] [place] [address], [place] [phone] * ANTINUCLEAR ANTIBODY WI RFX (11/28/2024 9:24 AM CDT) JANNIE 0.2 11/29/2024 11:18 AM CDT [facility] Comment: NEGATIVE: <0.7 RATIO JANNIE PROFILE AND TITER NOT PERFORMED THE JANNIE SCREEN TESTS FOR THE FOLLOWING ANTIBODIES BY EIA: SSA1 (RO), SSB1 (LA), ASH, SCL70, JO1, CENTROMERE, WICK AND BASE ASSEMBLER HISTONE MUST BE ORDERED SEPARATELY DNA (DS) ANTIBODY <0.6 IU/ML 025 11:18 AM CDT [facility] Comment: NEGATIVE: <10 IU/mL EQUIVOCAL: 10 to 15 IU/mL POSITIVE: >15 IU/mL THIS QUANTITATIVE ASSAY IS CALIBRATED TO THE [employer]'S WO/80 STANDARD. THE LEVEL OF dsDNA AUTOANTIBODY GERERALLY CORRELATES WITH THE LEVEL OF DISEASE ACTIVITY IN SYSTEMIC LUPUS ERYTHMATOSUS 11/28/2024 9:24 AM CDT Krystal Roche DO LABORATORY Final Result [facility] [address] [place] [address], [place] [phone] * VITAMIN B-12 (11/28/2024 9:24 AM CDT) VITAMIN B12 S/P/B 381 193 - 986 PG/ML 11/28/2024 2:16 PM CDT [facility] 11/28/2024 9:24 AM CDT Krystal Roche DO LABORATORY Final Result Performing Organization Address City/[facility]/ZIP Co de Phone Number [facility] [address] [place] [address], [place] [phone] * SED RATE, ERYTHROCYTE (ESR) (11/28/2024 9:24 AM CDT) Pathologist [facility] ESR 8 0 - 20 MM/HR 11/28/2024 9:51 AM CDT [facility] 11/28/2024 9:24 AM CDT Krystal Roche DO LABORATORY Final Result Performing Organization Address [facility] Co de Phone Number [facility] [place] [address], * IMMUNOFIXATION (11/28/2024 9:24 AM CDT) Pathologist [facility] IMMUNOFIXATION SERUM SEE PATHOLOGIST'S INTERPRETATION 11/30/2024 10:29 AM CDT [facility] IMMUNOFIX (SERUM) INTERPRETATION THIS SERUM IMMUNOTYPING WAS INTERPRETED BY 11/29/2024 8:11 PM CDT [facility] Comment: DR EJ CONLEY MONOCLONAL PROTEIN NOT IDENTIFIED 11/28/2024 9:24 AM CDT Krystal Roche DO LABORATORY Final Result Performing Organization Address [facility]/ZIP Co de Phone Number [facility] [address] [place] [address], [place] [phone] * C-REACTIVE PROTEIN (11/28/2024 9:24 AM CDT) C-REACTIVE PROTEIN 0.25 <0.30 mg/dL 11/28/2024 9:55 AM CDT [facility] 11/28/2024 9:24 AM CDT Krystal Roche DO LABORATORY Final Result [facility] [address] [place] [address], [place] [phone] * VITAMIN B6 (11/28/2024 9:24 AM CDT) VITAMIN B6 S/P/B 14.6 2.1 - 21.7 ng/mL 12/06/2024 1:06 PM CDT [facility] Comment: Vitamin supplementation within 24 hours prior to blood draw may affect the accuracy of the results. This test was developed and its analytical performance characteristics have been determined by [facility] [place], [place]. It has not been cleared or approved by the U.S. Food and Drug Administration. This assay has been validated pursuant to the CLIA regulations and is used for clinical purposes. Test Performed by [facility], [facility], [address] [place] [address] Samir Frankel M.D., Ph.D., Director of Laboratories , CLIA [id number] 11/28/2024 9:24 AM CDT Krystal Roche DO LABORATORY Final Result Performing Organization Address City/[facility]/ZIP Co de Phone Number [facility] [address] [address], [place] [phone] * PROTEIN, ELECTROPHORESIS (11/28/2024 9:24 AM CDT) TOTAL PROTEIN S/P/B 7.4 6.0 - 8.3 G/DL 11/29/2024 2:53 PM CDT [facility] ALBUMIN S/P/B 4.5 3.4 - 4.9 G/DL 11/29/2024 2:52 PM CDT [facility] [id number] S/P/B 0.3 0.2 - 0.4 G/DL 11/29/2024 2:52 PM CDT [facility] [id number] S/P/B 1.0 0.4 - 1.0 G/DL 11/29/2024 2:52 PM CDT [facility] BETA GLOBULIN S/P/B 0.9 0.5 - 1.2 G/DL 11/29/2024 2:52 PM CDT [facility] GAMMA GLOBULIN S/P/B 0.8 0.6 - 1.6 G/DL 11/29/2024 2:52 PM CDT [facility] ELECTROPHORESIS INTERPRETATION THIS SERUM PEP WAS INTERPRETED BY 11/29/2024 8:10 PM CDT [facility] Comment: DR EJ CONLEY THE TOTAL SERUM PROTEIN IS NORMAL. ELECTROPHORESIS IDENTIFIES NO QUANTITATIVE ABNORMALITIES WITHIN THE PROTEIN FRACTIONS. MONOCLONAL PROTEINS ARE NOT DETECTED. 11/28/2024 9:24 AM CDT Krystal Roche DO LABORATORY Final Result [facility] [address] [place] [address], [phone] * MG SCREENING W ALEC KACIE DIGI (11/14/2024 2:09 PM CDT) Anatomical Region Laterality Modality Breast Bilateral Mammography 11/15/2024 2:50 PM CDT Impressions 11/15/2024 2:51 PM CDT IMPRESSION: No interval features to suggest malignancy. In the absence of clinical symptoms, return for annual screening mammogram due in 1 year. RECOMMENDATION: Routine Screening, Bilateral Mammogram in 1 year ASSESSMENT: ACR BI-RADS 2 - BENIGN FINDING(S) Ordered By: QUENTIN ACEVEDO Interpreted By: Ariel Swartz MD, 11/15/2024 2:50 PM Narrative 11/15/2024 2:51 PM [address]T [address] [place] [address] EXAMINATION: BILATERAL SCREENING MAMMOGRAPHY Exam Date: 11/14/2024 1:20 PM CLINICAL INDICATION: 69 years of age female routine screening. COMPARISON: Dating back to 10/24/2017 TECHNIQUE: Digital CC & MLO views. Tomosynthesis imaging acquisition Study read with the assistance of a computer-aided detection system. TISSUE DENSITY: The breasts are almost entirely fatty. FINDINGS: No suspicious grouping of microcalcifications, distortion, or suspicious nodule 3 dimensionally demonstrated in either breast. Stable tissue pattern. Breast calcifications are benign. us Quentin Acevedo MD MAMMO Final Result * BONE DENSITY/DEXA (11/15/2023 2:38 PM CDT) Anatomical Region Laterality Modality Bone Bone Density 11/15/2023 4:23 PM CDT Impressions 11/15/2023 4:25 PM CDT Impression: Within normal limits in the lumbar spine and both hips. Ordered By: QUENTIN ACEVEDO Interpreted By: Eduar Pacheco MD, 11/15/2023 4:23 PM Narrative 11/15/2023 4:25 PM CDT Examination: DEXA Bone densitometry Clinical history: Postmenopausal. Osteoporosis screening. Comparison: None. Technique: DEXA bone mineral density evaluation was performed in the AP projection over the lumbar spine and over both hips in the AP projection utilizing standard imaging techniques. Assessment: The BMD measured at the AP spine L1-L4 is 1.009 g/cm2 with a T-score of -0.3 and a Z-score of 1.6. Bone density is up to 10% below young normal. This patient is considered normal according to the World Health Organization (WHO) criteria. Fracture risk is low. The BMD measured at the femoral neck left is 0.784 g/cm2 with a T-score of -0.6 and a Z-score of 1.1. Bone density is up to 10% below young normal. This patient is considered normal according to the World Health Organization (WHO) criteria. Fracture risk is low. The BMD measured at the femoral neck right is 0.751 g/cm2 with a T-score of -0.9 and a Z-score of 0.8. Bone density is up to 10% below young normal. This patient is considered normal according to the World Health Organization (WHO) criteria. Fracture risk is low. FRAX 10-year fracture risk: Major Osteoporotic Fracture: 8.2%. Hip Fracture: 0.6%. Recommendations: All patients should ensure an adequate intake of dietary calcium and vitamin D. The NOF recommend adults under the age of 50 need 1000 mg of calcium and 400-800 IU of vitamin D daily. Effective therapy for the prevention and treatment of osteoporosis include biphosphonates. Follow-up: People with diagnosed cases of osteoporosis or at high risk for fracture should have regular bone mineral density test. For patients eligible for Medicare, routine testing is allowed once every 2 years. Testing frequency can be increased to one year for patients who have rapidly progressing disease, those who are receiving or discontinuing medical therapy to restore bone mass, or have additional risk factors. Based on these results, a followup exam is recommended in two years. Procedure Note Eduar Pacheco MD - 11/15/2023 Examination: DEXA Bone densitometry Clinical history: Postmenopausal. Osteoporosis screening. Comparison: None. Technique: DEXA bone mineral density evaluation was performed in the APprojection over the lumbar spine and over both hips in the AP projectionutilizing standard imaging techniques. Assessment: The BMD measured at the AP spine L1-L4 is 1.009 g/cm2 with a T-score of-0.3 and a Z-score of 1.6. Bone density is up to 10% below youngnormal. This patient is considered normal according to the World HealthOrganization (WHO) criteria. Fracture risk is low. The BMD measured at the femoral neck left is 0.784 g/cm2 with a T-score of-0.6 and a Z-score of 1.1. Bone density is up to 10% below youngnormal. This patient is considered normal according to the World HealthOrganization (WHO) criteria. Fracture risk is low. The BMD measured at the femoral neck right is 0.751 g/cm2 with a T-scoreof -0.9 and a Z-score of 0.8. Bone density is up to 10% below youngnormal. This patient is considered normal according to the World HealthOrganization (WHO) criteria. Fracture risk is low. FRAX 10-year fracture risk: Major Osteoporotic Fracture: 8.2%. Hip Fracture: 0.6%. Recommendations: All patients should ensure an adequate intake of dietary calcium andvitamin D. The NOF recommend adults under the age of 50 need 1000 mg ofcalcium and 400-800 IU of vitamin D daily. Effective therapy for theprevention and treatment of osteoporosis include biphosphonates. Follow-up: People with diagnosed cases of osteoporosis or at high risk for fractureshould have regular bone mineral density test. For patients eligible forMedicare, routine testing is allowed once every 2 years. Testing frequencycan be increased to one year for patients who have rapidly progressingdisease, those who are receiving or discontinuing medical therapy torestore bone mass, or have additional risk factors. Based on these results, a followup exam is recommended in two years. Impression: Within normal limits in the lumbar spine and both hips. Ordered By: QUENTIN ACEVEDO Interpreted By: Eduar Pacheco MD, 11/15/2023 4:23 PM Quentin Acevedo MD DEXA Final Result from Last 3 Months or Most Recently Relevant to Health Maintenance Insurance [employer] Care Teams Airline Pilot Relationship Specialty Start Date End Date Quentin Acevedo MD [address] [place] [address] PCP - General INTERNAL MEDICINE 10/20/18
--- OUTSIDE RECORDS SUMMARY | 2024-12-10 12:28 | XMS_ITS | Clinical Summary ---
Author Organization [facility] Address [address] [place], [address] [address] Phone Care Team Providers Care Seasonal Sales Associate Name Role Phone Quentin Acevedo MD Primary Care Provider Allergies No known active allergies Medications metFORMIN (GLUCOPHAGE) 500 MG Tablet Take 500 mg by mouth 2 times daily (with meals). Active SIMVASTATIN PO Take 40 mg by mouth nightly. Active allopurinol (ZYLOPRIM) 100 MG Tablet Take 100 mg by mouth daily. Active [place]-3 Fatty Acids (FISH OIL PO) Take 1 Tab by mouth daily. Active omeprazole (PRILOSEC) 40 MG CAPSULE DELAYED RELEASE Take 40 mg by mouth daily. Active amitriptyline (ELAVIL) 10 MG Tablet Take 10 mg by mouth nightly. Active Aspirin 81 MG Tablet Take 81 mg by mouth daily. Active Cholecalciferol (VITAMIN D3) 1000 UNIT Tablet Take by mouth 2 times daily. Active Family History Medical History Relation Name Comments Cancer Brother renal Diabetes Father Cancer Mother lymphoma Relation Name Status Comments Brother Father Mother Social History Tobacco Use Types Packs/Day Years Used Date Smoking Tobacco: Former Cigarettes 1 10 0 08/16/1999 - 08/15/2009 Smokeless Tobacco: Never Alcohol Use Standard Drinks/Week Comments Yes 12 (1 standard drink = 0.6 oz pu re alcohol) Comments Unknown Sex and Gender Information Value Date Recorded Sex Assigned at Not on file Legal Sex Female 7:38 AM CDT Gender Identity Not on file Sexual Orientation Not on file Last Filed Vital Signs Vital Sign Reading Time Taken Comments Blood Pressure 159/87 08/24/2017 11:58 AM CDT Pulse 63 08/24/2017 11:58 AM CDT Temperature 36 C (96.8 F) 08/24/2017 11:58 AM CDT Respiratory Rate 22 08/24/2017 11:58 AM CDT Oxygen Saturation 100% 08/24/2017 11:58 AM CDT Inhaled Oxygen Concentration - - Weight 77.1 kg (170 lb) 08/24/2017 10:56 AM CDT Height 160 cm (5' 3) 08/24/2017 10:56 AM CDT Body Mass Index 30.11 08/24/2017 10:56 AM CDT Plan of Treatment Health Maintenance Due Date Last Done Comments Hepatitis C Virus (HCV) Screening 1955 TdaP Immunization 1955 Cologuard 01/10/2001 Colonoscopy 01/10/2001 Colorectal Cancer Screening 01/10/2001 Immunochemical Fecal Occult Blood 01/10/2001 Pneumococcal Immunization (5 0+ years) (1 of 1 - PCV) 01/10/2006 Zoster Immunization (1 of 2) 01/10/2006 SARS-COV-2 Immunization (1 - 2023- season) 2023 Influenza Immunization (#1) 2024 Respiratory Syncytial Virus (RSV) Immunization (Adult) (1 - 1-dose 75+ series) 01/10/2031 Hepatitis B Immunization Aged Out No longer eligible based on patient's age to complete this topic Human Papillomavirus (HPV) Immunization Aged Out No longer eligible b ased on patient's age to complete this topic Meningococcal Immunization (ACWY) Aged Out No longer eligible based on patient's age to complete this topic Rotavirus Immunization Aged Out No lo nger eligible based on patient's age to complete this topic Insurance MEDICAID [facility] Care Teams Seasonal Sales Associate Relationship Specialty Start Date End Date Quentin Acevedo MD [address] [place] [address] PCP - General Internal Medicine 08/12/17
== END 2024-12-10 12:19 | disposition home or self-care (01) ==
LOC: CHSIMG 12:20
PROVIDERS: PCP Internal Medicine; Visit Provider Internal Medicine
DX: S20.20XA Contusion of thorax, unspecified, initial encounter (principal); S22.42XA Multiple fractures of ribs, left side, initial encounter for closed fracture; R91.8 Other nonspecific abnormal finding of lung field
CPT/HCPCS: 71046; 71100